=== PATIENT | male | born 1935 | race Caucasian/White ===

== ENCOUNTER 2018-09-26 17:02 | Outpatient (CLI) | payer MEDICARE | END 2018-09-26 17:03 | disposition critical access hospital (66) | LOC: EMS 17:02 | PROVIDERS: ATTEND Surgery | DX: R42 Dizziness and giddiness (principal); R10.9 Unspecified abdominal pain; R11.2 Nausea with vomiting, unspecified; R00.0 Tachycardia, unspecified | CPT/HCPCS: A0425; A0427 ==

== ENCOUNTER 2018-09-26 17:25 | Emergency (ER) | payer MEDICARE ==
[2018-09-26] MEDS ORDERED: HYDROmorphone 1 MG/ML CARPUJECT IVP STA (17:33)
[2018-09-26] MEDS ORDERED: SODIUM CHLORIDE 0.9% 1,000 ML IV ONE (17:33)
--- NOTE | 2018-09-26 17:35 | ED Physician Documentation ---
History of Present Illness - Stated complaint Stated Complaint: LOWER ABD/ GROIN PX - History obtained from History obtained from: Patient, EMS - History of Present Illness Timing: Today Pain level max: 10 Pain level now: 10 - Additonal information Additional information: patient just moaning. won't answer any questions. Review of Systems Unable to obtain: AMS, Uncooperative PD PAST MEDICAL HISTORY - Past Medical History Past Medical History: No - Past Surgical History Past Surgical History: No - Present Medications Home Medications: Ambulatory Orders Medication Instructions Recorded Confirmed Hydrocodone/Acetaminophen 1 - 2 tab PO Q4-6H PRN #40 tablet 04/23/14 [Hydrocodon-Acetaminophen 5-325] Tamsulosin [Flomax] 0.4 mg PO DAILY #20 capsule 09/26/18 - Allergies Allergies/Adverse Reactions: Allergies Allergy/AdvReac Type Severity Reaction Status Date / Time No Known Drug Allergies Allergy Verified 04/23/14 17:07 - Living Situation Living Arrangement: reports: At home - Social History Does the pt have substance abuse?: No - Family History Family history: reports: Non contributory PD ED PE NORMAL - Vitals Vital signs reviewed: Yes - General General: Other (moaning, won't answer questions) - HEENT HEENT: PERRL - Neck Neck: Supple, no meningeal sign - Cardiac Cardiac: Strong equal pulses, Other (tachycardic) - Respiratory Respiratory: No respiratory distress, Clear bilaterally - Abdomen Abdomen: Soft, Non distended - Male Male : Other (L sided inguinal hernia, reduced with palpation) - Derm Derm: Warm and dry - Extremities Extremities: No edema - Neuro Neuro: Other (alert) Results - Vitals Vitals: Oxygen O2 Source Room air - Labs Labs: Laboratory Tests 09/26/18 09/26/18 09/26/18 17:55 17:55 18:50 WBC 10.6 RBC 4.14 L Hgb 13.7 L Hct 40.2 L MCV 97.0 H MCH 33.1 H MCHC 34.1 RDW 13.0 Plt Count 170 MPV 8.5 Neut # (Auto) 6.5 Lymph # (Auto) 3.0 [place] # (Auto) 0.8 Eos # (Auto) 0.1 Baso # (Auto) 0.1 Absolute Nucleated RBC 0.01 Nucleated RBC % 0.1 Sodium 132 L Potassium 4.1 Chloride 99 L Carbon Dioxide 17 L Anion Gap 16.0 H BUN 16 Creatinine 1.1 Estimated GFR (MDRD) 64 L Glucose 224 H Calcium 9.2 Total Bilirubin 0.9 AST 36 ALT 25 Alkaline Phosphatase 76 Total Protein 7.2 Albumin 4.3 Globulin 2.9 Albumin/Globulin Ratio 1.5 Lipase 32 Urine Color YELLOW Urine Clarity CLEAR Urine pH 6.5 Ur Specific [place] 1.015 Urine Protein NEGATIVE Urine Glucose (UA) 250 H Urine Ketones 15 H Urine Occult Blood NEGATIVE Urine Nitrite NEGATIVE Urine Bilirubin NEGATIVE Urine Urobilinogen 0.2 (NORMAL) Ur Leukocyte Esterase NEGATIVE Ur Microscopic Review NOT INDICATED Urine Culture Comments NOT INDICATED - Rads (name of study) CT abd.pelvis Radiology: Prelim report reviewed, EMP read contemporaneously, See rad report (No aortic aneurysm or dissection, noting mild to moderate atherosclerotic calcification. 2. Hyperenhancing gastric antral mucosa, possibly reflecting gastritis. 3. 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 5. Fat-containing left inguinal hernia noted. ) CT chest angio Radiology: Prelim report reviewed, EMP read contemporaneously, See rad report (No aortic aneurysm or dissection. Moderate aortic and severe coronary artery calcification noted. Dependent atelectasis in the lungs. ) PD MEDICAL DECISION MAKING - ED course Complexity details: reviewed old records, reviewed results, re-evaluated patient, considered differential, d/w patient ED course: 83 year old male with severe abd pain today. Improved after reduction of L inguinal hernia. given a dose of dilaudid and did become hypoxic. was given narcan and resolved the respiratory depression. Counseled regarding the CT findings including the CAD. Patient feels much better and is tolerating PO without difficulty. Also found to have urinary retention on CT, hanley placed and will leave in place. Will place on flomax and follow up with PCP for ca theter removal. Patient counseled regarding signs and symptoms for which I believe and urgent re-evaluation would be necessary. Patient with good understanding of and agreement to plan and is comfortable going home at this time This document was made in part using voice recognition software. While efforts are made to proofread this document, sound alike and grammatical errors may occur. Departure - Departure Disposition: 01 Home, Self Care Clinical Impression: Urinary retention Inguinal hernia Qualifiers: Obstruction and gangrene presence: without obstruction or gangrene Laterality: unilateral Recurrence: non-recurrent Qualified Code(s): K40.90 - Unilateral inguinal hernia, without obstruction or gangrene, not specified as recurrent Coronary artery disease Qualifiers: Coronary Disease-Associated Artery/Lesion type: unspecified vessel or lesion type [place] vs. transplanted heart: [place] heart Associated angina: without angina Qualified Code(s): I25.10 - Atherosclerotic heart disease of [place] coronary artery without angina pectoris Condition: Good Instructions: ED Catheter Care Lee, DARNELL Hernia Inguinal Follow-Up: your,doctor in 3 days [Other] Prescriptions: Tamsulosin [Flomax] 0.4 mg PO DAILY #20 capsule Comments: Return if you worsen. You should follow-up with your doctor for further care. You may need a referral to a general surgeon for your inguinal hernia. Your doctor can remove the catheter in 3 days and make sure that you can urinate on your own. Discharge Date/Time: 09/26/18 21:15
[2018-09-26] MEDS ORDERED: IOVERSOL 320 100 ML VIAL IVP ONE ×2 (17:38→18:46)
[2018-09-26] MEDS ORDERED: NALOXONE 0.4 MG/ML VIAL IVP STA (18:00)
[2018-09-26] MEDS ORDERED: NALOXONE 0.4 MG/ML VIAL ONE ×2 (18:02→18:04)
[2018-09-26 18:10] LABS: BASOPHILS # (AUTO) 0.1 10^3/uL (0.0-0.1); BASOPHILS % (AUTO) 0.9 %; EOSINOPHILS # (AUTO) 0.1 10^3/uL (0.0-0.7); EOSINOPHILS % (AUTO) 1.3 %; HGB - HEMOGLOBIN 13.7 g/dL (14.0-18.0); LYMPHOCYTES % (AUTO) 28.7 %; MEAN CORPUSCULAR HEMOGLOBIN 33.1 pg (27.0-31.0); MEAN CORPUSCULAR HGB CONC 34.1 g/dL (32.0-36.0); MEAN PLATELET VOLUME 8.5 fL (7.4-11.4); MONOCYTES # (AUTO) 0.8 10^3/uL (0.0-1.0); MONOCYTES % (AUTO) 7.1 %; NEUTROPHILS # (AUTO) 6.5 10^3/uL (1.5-6.6); PLT - PLATELET COUNT 170 10^3/uL (130-450); RED BLOOD COUNT 4.14 10^6/uL (4.70-6.10); WHITE BLOOD COUNT 10.6 x10^3/uL (4.8-10.8)
[2018-09-26 18:19] LABS: ALBUMIN 4.3 g/dL (3.2-5.5); ALBUMIN/GLOBULIN RATIO 1.5 (1.0-2.2); BILIRUBIN,TOTAL 0.9 mg/dL (0.2-1.0); CALCIUM 9.2 mg/dL (8.5-10.3); CREATININE 1.1 mg/dL (0.6-1.2); TOTAL PROTEIN 7.2 g/dL (6.7-8.2)
[2018-09-26 19:01] LABS: BILIRUBIN,URINE NEGATIVE (NEGATIVE); GLUCOSE, URINE (UA) 250 mg/dL (NEGATIVE); KETONES,URINE (UA) 15 mg/dL (NEGATIVE); LEUKOCYTE ESTERASE, URINE NEGATIVE (NEGATIVE); NITRITE,URINE NEGATIVE (NEGATIVE); OCCULT BLOOD,URINE NEGATIVE (NEGATIVE); PH,URINE 6.5 PH (5.0-7.5); PROTEIN,URINE NEGATIVE (NEGATIVE); UROBILINOGEN,URINE 0.2 (NORMAL) E.U./dL (NORMAL)
[2018-09-26 19:04] LABS: CLARITY,URINE CLEAR (CLEAR)
--- NOTE | 2018-09-26 19:14 | CT Report ---
Reason: abd pain, moaning, tachycardia Procedure Date: 09/26/2018 Accession Number: [id number] / [id number] Procedure: CT - Abdomen/Pelvis Angio CPT Code: FULL RESULT: EXAM: CT ANGIOGRAM ABDOMEN AND PELVIS WITH CONTRAST EXAM DATE: 09/26/2018 06:39 PM. CLINICAL HISTORY: Abdomen pain. Tachycardia. COMPARISONS: None. TECHNIQUE: Routine helical CT angiogram imaging was performed through the abdomen and pelvis in the arterial phase. IV contrast: 90 cc of Isovue-300. Enteric contrast: No. Reconstructions: Coronal, sagittal, and 3D MIP reconstructions. In accordance with CT protocol optimization, one or more of the following dose reduction techniques were utilized for this exam: automated exposure control, adjustment of mA and/or KV based on patient size, or use of iterative reconstructive technique. FINDINGS: Vasculature: No aneurysm or dissection of the abdominal aorta and iliac arteries. Mild to moderate atherosclerotic calcification. The visualized mesenteric and solid organ vascular structures are within normal limits. Lung Bases: Dependent atelectasis, otherwise unremarkable. Abdominal Solid Organs: Cholecystectomy. No dilated ducts. The liver, spleen, pancreas, adrenal glands, and kidneys are normal in size and demonstrate no masses or abnormal enhancement. Peritoneal Cavity: Hyperenhancing gastric antral mucosa noted. No free fluid, free air, or acute inflammatory process. Normal appendix noted. Pelvic Organs: Large prostate. Unremarkable full bladder. Bones: There is degenerative disk disease throughout the lumbar spine. 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 Other: Fat-containing left inguinal hernia noted. IMPRESSION: 1. No aortic aneurysm or dissection, noting mild to moderate atherosclerotic calcification. 2. Hyperenhancing gastric antral mucosa, possibly reflecting gastritis. 3. Large prostate with full bladder. 4. 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 5. Fat-containing left inguinal hernia noted. RADIA
[2018-09-26] MEDS ORDERED: LIDOCAINE 2% URO-JET 5 ML SYRINGE UR STA (19:18)
--- NOTE | 2018-09-26 19:19 | CT Report ---
Reason: abd pain, moaning, tachycardia Procedure Date: 09/26/2018 Accession Number: [id number] / [id number] Procedure: CT - Chest Angio (AORTA) CPT Code: FULL RESULT: EXAM: CT ANGIOGRAM CHEST EXAM DATE: 09/26/2018 06:39 PM. CLINICAL HISTORY: Abdomen pain. Tachycardia. COMPARISONS: None. TECHNIQUE: Routine axial helical CT angiographic imaging was performed through the chest. IV Contrast: 90 cc of Isovue-300. Reconstructions: Coronal, sagittal, and 3D MIP reconstructions of the aorta. In accordance with CT protocol optimization, one or more of the following dose reduction techniques were utilized for this exam: automated exposure control, adjustment of mA and/or KV based on patient size, or use of iterative reconstructive technique. FINDINGS: Vascular Structures: Moderate aortic and severe coronary artery calcification noted. No aneurysm or dissection of the thoracic aorta. The visualized pulmonary vascular structures are within normal limits. Lungs/Pleura: Dependent atelectasis. No consolidation, nodules, or edema. No effusions or pneumothorax. Mediastinum: Prior sternotomy. No cardiac enlargement or adenopathy. Bones: No significant abnormality. IMPRESSION: 1. No aortic aneurysm or dissection. 2. Moderate aortic and severe coronary artery calcification noted. 3. Dependent atelectasis in the lungs. RADIA
[2018-09-26 20:51] VITALS: BP 149/87
== END 2018-09-26 21:15 | disposition home or self-care (01) ==
LOC: EDUNIT# → ED 17:25
DX: R33.9 Retention of urine, unspecified (principal); K40.90 Unilateral inguinal hernia, without obstruction or gangrene, not specified as recurrent; I25.10 Atherosclerotic heart disease of native coronary artery without angina pectoris
CPT/HCPCS: 36415; 51702; 71275; 74174; 80053; 81003; 83690; 85025; 96361; 96374; 96375; 99284; J1170; Q9967; 81001; 87086

== ENCOUNTER 2019-04-17 13:28 | Outpatient (CLI) | payer OTHER ==
--- NOTE | 2019-04-17 14:48 | CARDIAC PROCEDURE NOTE ---
DATE OF SERVICE: 04/17/2019 Physician: Abi Muniz MD, [facility] INDICATION: Chest pain. CARDIAC RISK FACTORS: Male gender, advanced age, diabetes. There is a history of prior CAD with coronary artery bypass surgery in 1985 and the last stress test was approximately in 2003. PROCEDURE IN DETAIL: After signing informed consent, the patient underwent a Fermin-protocol treadmill stress test. No imaging was ordered with this study. RESTING HEART RATE: 73. PEAK HEART RATE: 128 (92% predicted maximum heart rate for age). RESTING BLOOD PRESSURE: 119/60. PEAK BLOOD PRESSURE: 150/45. The patient exercised for 5 minutes on a Fermin-protocol treadmill stress test. The patient achieved a peak heart rate of 128 (92% PMHR) and 7 METS. The patient developed no chest pain. He did develop moderate shortness of breath and rated his exertion as light to medium. Oxygen saturation at peak was 82% on room air. This improved to 96% saturation after 1 minute of recovery. RESTING EKG: Normal sinus rhythm, first-degree AV block, early R/S transition. EKG AT PEAK: Sinus rhythm, first-degree AV block, new RSR' in V1, horizontal ST depressions in leads I, II and V2 through V5. In recovery, there are new T wave inverted in leads I, aVL and V2 through V6. IMPRESSION 1. Abnormal resting EKG. 2. Oxygen desaturation along with new RSR' in V1 at peak exercise, suggests pulmonary disease. 3. No chest pain developed with this level of exertion. 4. Significant ST segment depressions and T-wave inversions develop with exertion, which are consistent with coronary ischemia in the anterolateral distribution. 5. No imaging was ordered with this study. cc: Marty Granados MD TD: 04/17/2019 14:27 [facility]
== END 2019-04-17 13:29 | disposition home or self-care (01) ==
LOC: DI 13:28
PROVIDERS: ATTEND Internal Medicine
DX: R07.9 Chest pain, unspecified (principal); R94.31 Abnormal electrocardiogram [ECG] [EKG]

== ENCOUNTER 2019-11-13 06:26 | Outpatient (CLI) | payer MEDICARE ==
--- NOTE | 2019-11-13 08:10 | Ultrasound Report ---
Reason: ABD PAIN, BLADDER PAIN Procedure Date: 11/13/2019 Accession Number: [id number] / [id number] Procedure: US - Pelvic Limited or F/U CPT Code: Final Report FULL RESULT: EXAM: Limited abdominal/pelvic ultrasound EXAM DATE: 11/13/2019 07:16 AM. CLINICAL HISTORY: Abdominal pain, bladder pain. COMPARISON: None. TECHNIQUE: Real-time scanning was performed of the right lower quadrant with static images obtained. FINDINGS: The liver was measured at 11.4 cm in length. It appeared diffusely echogenic, suggesting fatty infiltration. No intrahepatic biliary duct dilatation identified. Previous cholecystectomy. The common bile duct measures 7 mm transversely. Pancreatic head appears within normal limits. Pancreatic body and tail are obscured by bowel gas. The right kidney measures 10.0 cm in length and the left kidney measures 9.4 cm in length. Both kidneys appear within normal limits. No hydronephrosis. The spleen measures 9.0 cm in length and appears unremarkable. No aneurysmal dilatation of the abdominal aorta. The imaged portion of the IVC appears within normal limits. Urinary bladder volume is 41 cc. No urinary bladder intraluminal filling defects are visualized. Patient unable to void. Bilateral ureteral jets are seen. Prominent prostate, measuring 6.8 x 6.0 x 5.1 cm. Other: None. IMPRESSION: Enlarged prostate. Patient unable to void bladder volume of 41 cc. Previous cholecystectomy. Suspected fatty infiltration of the liver. RADIA
--- NOTE | 2019-11-13 08:12 | Ultrasound Report ---
Reason: ABD PAIN, BLADDER PAIN Procedure Date: 11/13/2019 Accession Number: [id number] / [id number] Procedure: US - Abdomen Complete CPT Code: Final Report FULL RESULT: EXAM: ABDOMEN ULTRASOUND EXAM DATE: 11/13/2019 06:56 AM. CLINICAL HISTORY: Abdominal pain, bladder pain. COMPARISON: None. TECHNIQUE: Real-time scanning was performed with static images obtained. FINDINGS: Liver: The liver appears diffusely echogenic, suggesting fatty infiltration. 11.4 cm. Main portal vein flow: Hepatopetal. Gallbladder: Previous cholecystectomy. Biliary System: Common bile duct measures 7 mm. No intrahepatic or extrahepatic ductal dilatation. Pancreas: Visualized portion is unremarkable. Pancreatic body and tail obscured by bowel gas and not evaluated. Kidneys: Right: 10.0 cm longitudinally. Normal. No contour-deforming mass, stones, or hydronephrosis. Left: 9.4 cm longitudinally. Normal. No contour-deforming mass, stones, or hydronephrosis. Spleen: 9 cm. Normal in size and echotexture. Aorta and Inferior Vena Cava: Unremarkable, as seen. Other: None. IMPRESSION: Suspect diffuse fatty infiltration of the liver. Previous cholecystectomy. RADIA
== END 2019-11-13 06:27 | disposition home or self-care (01) ==
LOC: DI 06:26
PROVIDERS: ATTEND Registered Nurse
DX: R10.9 Unspecified abdominal pain (principal); N40.0 Benign prostatic hyperplasia without lower urinary tract symptoms; Z90.49 Acquired absence of other specified parts of digestive tract
CPT/HCPCS: 76700; 76857

== ENCOUNTER 2019-12-07 12:10 | Outpatient (CLI) | payer MEDICARE ==
--- NOTE | 2019-12-07 13:00 | CT Report ---
Reason: CLOSED INJURY OF HEATD Procedure Date: 12/07/2019 Accession Number: [id number] / [id number] Procedure: CT - HEAD WO CPT Code: Final Report FULL RESULT: EXAM: CT HEAD EXAM DATE: 12/07/2019 12:37 PM. CLINICAL HISTORY: CLOSED INJURY OF HEAD. Fall, striking the occiput. Dizziness. COMPARISON: None. TECHNIQUE: Multiaxial CT images were obtained from the foramen magnum to the vertex. Reformats: Sagittal and coronal. IV contrast: None. In accordance with CT protocol optimization, one or more of the following dose reduction techniques were utilized for this exam: automated exposure control, adjustment of mA and/or KV based on patient size, or use of iterative reconstructive technique. FINDINGS: Parenchyma: Minimal patchy hypodensity in the bilateral cerebral white matter. No intraparenchymal hemorrhage. No evidence of mass, midline shift, or CT findings of infarction. Wilson-white differentiation is distinct. Extraaxial Spaces: Normal for age. No subdural or epidural collections identified. Ventricles: Normal in size and position. Sinuses and Orbits: Imaged paranasal sinuses, orbits, and mastoids show no significant abnormality. Bilateral cataract surgery. Bones: No evidence of fracture or calvarial defect. Other: Marked right supraclinoid ICA calcification. Minimal bilateral cavernous ICA calcification. Middle cerebral arteries are symmetric and normal in density. No scalp contusion is identified. IMPRESSION: 1. No intracranial hemorrhage or skull fracture. 2. Minimal chronic small vessel ischemic change in the bilateral cerebral white matter. RADIA The call report notification system was initiated by Dr. Ion Celis at 12:59 PM on 12/07/2019.
== END 2019-12-07 12:11 | disposition home or self-care (01) ==
LOC: DI 12:10
PROVIDERS: ATTEND Nurse Practitioner Family
DX: S09.90XA Unspecified injury of head, initial encounter (principal); R42 Dizziness and giddiness; R90.82 White matter disease, unspecified
CPT/HCPCS: 70450

== ENCOUNTER 2021-10-19 12:46 | Outpatient (CLI) | payer MEDICARE | END 2021-10-19 12:47 | disposition EMS.NT | LOC: EMS 12:46 | DX: Z04.1 Encounter for examination and observation following transport accident (principal) ==

== ENCOUNTER 2021-10-19 15:11 | Emergency (ER) | payer OTHER, MEDICARE ==
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
[2021-10-19 16:41] VITALS: BP 150/72
== END 2021-10-19 16:22 | disposition home or self-care (01) ==
LOC: ED 15:11
DX: S20.219A Contusion of unspecified front wall of thorax, initial encounter (principal); S20.229A Contusion of unspecified back wall of thorax, initial encounter; V49.88XA Car occupant (driver) (passenger) injured in other specified transport accidents, initial encounter
CPT/HCPCS: 99282; 99284